=== PATIENT | female | born 1950 | race Caucasian/White ===

== ENCOUNTER 2017-01-18 20:13 | Emergency (ER) | payer OTHER ==
[~2017-01-18] VITALS: Ht 157.5 cm; Wt 110.1 kg
[~2017-01-18 20:13] MED LIST: METOPROLOL SUCC25 MG PO; PRINZIDE 10-121 EACH PO
[2017-01-18 20:59] LABS: HEMATOCRIT 43.7 % (36.0-46.0); MCH 36.9 PG (29.0-34.0); MCHC 33.4 G/DL (30.0-36.0); MCV 110.4 FL (83-99); MEAN PLAT.VOLUME 10.9 uM^3 (9.5-12.4); PLATELET COUNT 107 K/uL (156-360); RBC DIS.WIDTH-CV 12.4 % (11.8-14.6); RBC DIS.WIDTH-SD 50.9 % (39-53); RED BLOOD COUNT 3.96 M/uL (3.80-5.20); WHITE BLOOD COUNT 10.9 K/uL (4.1-10.2)
[2017-01-18 21:02] LABS: CHLORIDE 104 mEq/L (99-109); POTASSIUM 5.2 mEq/L (3.7-5.4); SODIUM 135 mEq/L (136-147)
[2017-01-18 21:04] LABS: GLUCOSE 137 mg/dL (70-99)
[2017-01-18 21:05] LABS: ANION GAP 11 MEQ/L (2-14)
[2017-01-18 21:06] LABS: TOTAL BILIRUBIN 1.4 mg/dL (0.0-1.0)
[2017-01-18 21:07] LABS: ALKALINE PHOSPHATASE 82 IU/L (3-129)
[2017-01-18 21:08] LABS: GFR ESTIMATE (CALCULATED) 32 mL/min/
[2017-01-18 21:09] LABS: UREA NITROGEN (BUN) 47 mg/dL (9-23)
[2017-01-18 22:11] LABS: LIPASE 37 U/L (1.0-51.0)
[2017-01-18 23:28] LABS: ADD MIUA? YES; BILIRUBIN NEGATIVE; BLOOD MODERATE; COLOR YELLOW ((YELLOW)); GLUCOSE (STRIP) NEGATIVE; KETONES NEGATIVE; LEUKOCYTES MODERATE; NITRITE NEGATIVE; PROTEIN (STRIP) 30; SPECIFIC GRAVITY 1.013 (1.000-1.030); UROBILINOGEN 0.2 MG/DL (0.2-1.0)
[2017-01-18 23:33] LABS: BACTERIA RARE /HPF; EPITHELIAL CELLS RARE /HPF; HYALINE CASTS 0-5 /LPF; MUCUS TRACE /LPF; UCUL ADDED? YES; WHITE BLOOD CELLS 40-50 /HPF (0-5)
[2017-01-19 00:35] VITALS: BP 131/78
== END 2017-01-19 00:44 | disposition home or self-care (01) ==
LOC: EME 20:13 → RME 20:13
DX: R10.9 Unspecified abdominal pain (principal); M54.5 Low back pain; M54.2 Cervicalgia; R07.9 Chest pain, unspecified; N20.0 Calculus of kidney; K57.30 Diverticulosis of large intestine without perforation or abscess without bleeding; M48.56XA Collapsed vertebra, not elsewhere classified, lumbar region, initial encounter for fracture; Z87.442 Personal history of urinary calculi; Z90.710 Acquired absence of both cervix and uterus; I10 Essential (primary) hypertension; E66.01 Morbid (severe) obesity due to excess calories; Z68.41 Body mass index [BMI] 40.0-44.9, adult; Z87.891 Personal history of nicotine dependence
CPT/HCPCS: 71020; 74176; 80053; 81003; 83690; 85027; 87086; 99281; 99284; J3010